=== PATIENT | female | born 1935 | race Caucasian/White ===

== ENCOUNTER → 2018-05-13 09:04 | Outpatient (CLI) | payer MEDICARE, MEDICAID, SELFPAY ==
[2018-05-13 11:12] LABS: Thyroid Stimulating Hormone 6.28 uIU/mL (0.47-4.68)
== END ==
PROVIDERS: Family Provider Physician Assistant; PCP Physician Assistant; Visit Provider Physician Assistant
DX: E03.9 Hypothyroidism, unspecified (principal)
CPT/HCPCS: 36415; 84443